=== PATIENT | female | born 1960 | race Caucasian/White ===

== ENCOUNTER 2017-12-16 23:30 | Emergency (ER) | payer MEDICAID ==
[~2017-12-16] VITALS: Ht 167.6 cm; Wt 77.1 kg
[2017-12-16 23:43] VITALS: BP 124/74
== END 2017-12-17 02:40 | disposition home or self-care (01) ==
LOC: ER 23:30
DX: S63.501A Unspecified sprain of right wrist, initial encounter (principal); K21.9 Gastro-esophageal reflux disease without esophagitis; F17.210 Nicotine dependence, cigarettes, uncomplicated; Z88.0 Allergy status to penicillin; X58.XXXA Exposure to other specified factors, initial encounter; Y93.89 Activity, other specified; Y92.89 Other specified places as the place of occurrence of the external cause; Y99.8 Other external cause status
CPT/HCPCS: 73110

== ENCOUNTER 2020-01-11 17:48 | Emergency (ER) | payer MEDICAID ==
[~2020-01-11] VITALS: Ht 167.6 cm; Wt 63.5 kg
[2020-01-11 17:57] VITALS: BP 110/81
[2020-01-11] MEDS ORDERED: KETOROLAC TROMETH 60MG/2ML VIAL IM ONE (19:00)
== END 2020-01-11 21:00 | disposition home or self-care (01) ==
LOC: ER 17:48
DX: S33.5XXA Sprain of ligaments of lumbar spine, initial encounter (principal); M54.16 Radiculopathy, lumbar region; K21.9 Gastro-esophageal reflux disease without esophagitis; F17.210 Nicotine dependence, cigarettes, uncomplicated; Z88.0 Allergy status to penicillin; X58.XXXA Exposure to other specified factors, initial encounter; Y93.89 Activity, other specified; Y92.89 Other specified places as the place of occurrence of the external cause; Y99.8 Other external cause status
CPT/HCPCS: 72131; 93005; 96374; 99284; J1885

== ENCOUNTER 2023-09-23 09:56 | Emergency (ER) | payer BC, MEDICAID ==
[~2023-09-23] VITALS: Ht 160 cm; Wt 64.3 kg
[2023-09-23] MEDS ORDERED: ACYC400T16 PO (12:18)
[2023-09-23] MEDS ORDERED: TRAM50TA2 PO (12:18)
[2023-09-23 12:25] VITALS: BP 110/80; PULSE 98; RESP 16; TEMP 99; O2SAT 96
== END 2023-09-23 12:30 | disposition home or self-care (01) ==
LOC: ER 09:56
DX: K40.90 Unilateral inguinal hernia, without obstruction or gangrene, not specified as recurrent (principal); B02.9 Zoster without complications; J45.909 Unspecified asthma, uncomplicated; E11.9 Type 2 diabetes mellitus without complications; K21.9 Gastro-esophageal reflux disease without esophagitis; E78.5 Hyperlipidemia, unspecified; E03.9 Hypothyroidism, unspecified; F17.210 Nicotine dependence, cigarettes, uncomplicated; Z90.89 Acquired absence of other organs; Z88.0 Allergy status to penicillin